=== PATIENT | male | born 2000 | race Two or more races ===

== ENCOUNTER 2020-11-05 19:39 | Emergency (ER) | payer MEDICAID ==
[~2020-11-05] VITALS: Ht 182.9 cm; Wt 134.0 kg
[2020-11-05] MEDS ORDERED: ACETAMINOPHEN 325MG TABLET PO ONE (23:00)
[2020-11-05] MEDS ORDERED: IBUPROFEN 600MG TABLET PO ONE (23:00)
[2020-11-05] MEDS ORDERED: KETO15CR2 TP ×2 (23:08)
[2020-11-05] MEDS ORDERED: SULF1TAB48 MT ×2 (23:08)
[2020-11-05] MEDS ORDERED: NAPR-1176 MT (23:08)
[2020-11-05] MEDS ORDERED: ACET-2708 MT (23:08)
[2020-11-05 23:14] VITALS: BP 130/82
[2020-11-05] MEDS ORDERED: CEPH500T MT (23:16)
[2020-11-05] MEDS ORDERED: ALBU6.7H9 INH (23:16)
== END 2020-11-05 23:34 | disposition home or self-care (01) ==
LOC: ER 19:39
DX: R10.33 Periumbilical pain (principal); L03.316 Cellulitis of umbilicus; J45.909 Unspecified asthma, uncomplicated; Z76.0 Encounter for issue of repeat prescription
CPT/HCPCS: 99283